=== PATIENT | female | born 1995 | race Caucasian/White ===

== ENCOUNTER 2016-07-12 15:10 | Emergency (ER) | payer OTHER ==
[~2016-07-12] VITALS: Ht 170.2 cm; Wt 104.3 kg
[~2016-07-12 15:10] MED LIST: PROAIR HFA0.09 MG/Ac INH; ROBITUSSIN W/CO10 ML PO; ZITHROMAX Z-PA250 M1 PO
[2016-07-12 16:35] VITALS: BP 114/67
[2016-07-12] MEDS ORDERED: AUGMENTIN600 MG/5 M PO (17:15)
--- NOTE | 2016-07-12 17:15 | ED INFLUENZA/URI COMPLAINT ---
History of Present Illness General Chief Complaint: General Adult Stated Complaint: COUGHING UP GREEN/BROWN PHLEGM, ?GUM INFECTION Source: patient Exam Limitations: no limitations Vital Signs & Intake/Output Vital Signs & Intake/Output Vital Signs Date Time Temp Pulse Resp B/P Pulse O2 O2 Flow FiO2 Ox Delivery Rate 07/12 1639 Room Air Room Air 07/12 1635 99.1 98 20 114/67 97 Room Air 07/12 1530 97.6 102 18 128/87 99 Room Air Allergies Coded Allergies: red dye (VOMITING 07/12/16) Reconcile Medications Amoxicillin/Potassium Clav (Augmentin Es-600 Suspension) 600 MG-42.9 MG/5 ML SUSP.RECON 7.5 ML PO BID SINUSITIS Triage Note: PT STATES THAT SHE HAS A GUM INFECTION FOR THE PAST 3-4 DAYS AND THAT SHE HAD A DENTIST APPOINTMENT THAT SHE MISSED TODAY DUE TO SHE CAME TO ER FOR HER COUGH THAT IS PRODUCTIVE OF BROWN SPUTUM SINCE THIS AM. AFEBRILE AT TRIAGE Triage Nurses Notes Reviewed? yes : No Patient currently breastfeeds: No HPI: 21-year-old obese female smoker presents with 2 days of cough congestion and green rhinorrhea, sinus pain and pressure, tactile fever, gum pain and swelling and mild bleeding with brushing her teeth. She is not wheezing or short of breath. She has no vomiting or abdominal pain. Symptoms are moderate. There is no treatment thus far no modifying factors Past History Travel History Traveled to [place] past 21 day No Medical History Any Pertinent Medical History? 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 No Review of Systems Review of Systems Constitutional: Reports: see HPI. EENTM: Reports: see HPI. Respiratory: Reports: no symptoms. Cardiovascular: Reports: no symptoms. GI: Reports: no symptoms. Genitourinary: Reports: no symptoms. Musculoskeletal: Reports: no symptoms. Skin: Reports: no symptoms. Neurological/Psychological: Reports: no symptoms. Hematologic/Endocrine: Reports: no symptoms. Immunologic/Allergic: Reports: no symptoms. All Other Systems: Reviewed and Negative Physical Exam Physical Exam Ears, Nose, Throat: moist mucous membrane, hearing grossly normal, Tympanic normal, pharynx normal, nasal congestion, nasal drainage, MINIMAL GUM ERYTHEMA WITHOUT ANY SIGNS OF SIGNIFICANT GINGIVAL HYPERTROPHY OR INFECTION. Comments: Well-developed well-nourished no apparent distress. HEENT: Atraumatic, extraocular motion intact Neck: Supple, no lymphadenopathy Back: Nontender Respiratory: No respiratory distress clear to auscultation bilateral. Heart: Regular rate and rhythm no murmur Extremities: No edema, full range of motion Neuro: Alert and oriented x3 Psych: Mood affect normal, normal memory normal judgment. Skin: Warm and dry, fine papular red rash to the face, nontender, not itchy. Core Measures Severe Sepsis Present: No Septic Shock Present: No Progress Differential Diagnosis: influenza, meningitis, neutropenia, otitis, pneumonia, pharyngitis, sinusitis Plan of Care: Treat with Augmentin for sinus infection. Smoking cessation counseling discussed. Initial ED EKG: none Departure Departure Disposition: HOME OR SELF CARE Condition: Stable Clinical Impression Primary Impression: Sinusitis Qualifiers: Sinusitis location: maxillary Chronicity: subacute Qualified Code: J01.00 - Acute maxillary sinusitis, unspecified Referrals: PATIENT HAS NO PRIMARY CARE DR (PCP/Family) Additional Instructions: Take antibiotics for your infection as directed. Use [id number] multisystem cold medication as needed. Motrin and Tylenol as needed for fever. Drink plenty of fluids. Return or follow-up with your doctor if not better in the next 3-5 days or if you're having continued worsening fevers, nausea, vomiting, shortness of breath, abdominal pain, difficulty swallowing or drinking or worsening flulike illness. Departure Forms: Customer Survey General Discharge Information Prescriptions: Current Visit Scripts Amoxicillin/Potassium Clav (Augmentin Es-600 Suspension) 7.5 ML PO BID #[id number] ML
== END 2016-07-12 17:30 ==
LOC: ERH 15:10
DX: J32.9 Chronic sinusitis, unspecified (principal); F17.210 Nicotine dependence, cigarettes, uncomplicated

== ENCOUNTER 2016-09-25 16:47 | Emergency (ER) | payer OTHER ==
[~2016-09-25] VITALS: Ht 170.2 cm; Wt 104.3 kg
[~2016-09-25 16:47] MED LIST changes: +AUGMENTIN600 MG/5 M PO
--- NOTE | 2016-09-25 19:02 | ED GI/GU/ABDOMINAL COMPLAINT ---
See Addendum History of Present Illness General Chief Complaint: Abdominal Pain/Flank Pain Stated Complaint: CONSTIPATED Source: patient Exam Limitations: no limitations Vital Signs & Intake/Output Vital Signs & Intake/Output Vital Signs Date Time Temp Pulse Resp B/P Pulse O2 O2 Flow FiO2 Ox Delivery Rate 09/25 1820 99 Room Air 09/25 1652 97.7 86 16 124/76 97 Room Air Allergies Coded Allergies: red dye (VOMITING 07/12/16) Reconcile Medications No Known Home Medications Triage Note: PT STATES SHE IS CONSTIPATED FOR A COUPLE OF DAYS. PT REPORTS THAT SHE TOOK A FLEET ENEMA ABOUT 1/2 HOUR AGO BUT STATES NOW SHE IS HAVING ABD PAIN AND FEELS LIKE THERE IS MORE IN THERE. Triage Nurses Notes Reviewed? yes ? N Is pt currently ? No HPI: This patient is a 21-year-old female who presented to the emergency department today for evaluation of constipation. The patient reported that sometimes she goes one week without having a bowel movement. She reported over the last 4 days she has felt constipated. She reported that she has had some mild lower abdominal cramping, but does not know if this is due to her menses which she is currently on board due to the constipation. She reported that she use a Fleet enema at home which caused her to have a, "mushy," bowel movement. This patient has never seen a director client. She denied any nausea or vomiting. She denied any fevers or chills. (PAZ MARKS PA-C) Past History Travel History Traveled to [place] past 21 day No Medical History Any Pertinent Medical History? 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 No (PAZ MARKS PA-C) Review of Systems Review of Systems Constitutional: Reports: no symptoms. EENTM: Reports: no symptoms. Respiratory: Reports: no symptoms. Cardiovascular: Reports: no symptoms. GI: Reports: see HPI. Genitourinary: Reports: no symptoms. Musculoskeletal: Reports: no symptoms, see HPI, back pain, gout, joint pain, joint swelling, muscle pain, muscle stiffness, neck pain. Skin: Reports: no symptoms. Neurological/Psychological: Reports: no symptoms. All Other Systems: Reviewed and Negative (PAZ MARKS PA-C) Physical Exam Physical Exam Gastrointestinal: normal bowel sounds, soft, non-tender, no organomegaly, MILD TENDERNESS TO PALPATION IN THE SUPRAPUBIC REGION. nO RIGHT LOWER QUADRANT TENDERNESS. nO REBOUND OR GUARDING. nO MASSES APPRECIATED. nO PERITONEAL SIGNS. Comments: Well-developed well-nourished person in no acute distress HEENT: Normal EENT exam, moist mucous membranes Pupils equally round and reactive to light. Neck: Supple, no lymphadenopathy Back: Normal gait. Normal inspection. No CVA tenderness. No midline tenderness Cardiovascular: Regular rate and rhythm with no murmurs Respiratory: No respiratory distress. Breath sounds clear to auscultation bilaterally Extremity: Normal and equal pulses Neuro: Alert oriented x3, cranial nerves II through XII grossly intact. Skin: No appreciable rash on exposed skin, skin is warm and dry. Psych: Mood and affect is normal Core Measures ACS in differential dx? No Severe Sepsis Present: No Septic Shock Present: No (PAZ MARKS PA-C) Progress Differential Diagnosis: appendicitis, biliary colic, bowel obstruction, colon cancer, cholecystitis, diverticulitis, ectopic , endometritis, gastritis, hepatitis, hernia, ischemic bowel, inflamm bowel dis, intrauterine , ovarian cyst, ovarian torsion, pancreatitis, PID/cervicitis, perforated viscous, SBO, threatened AB, UTI/pyelo, CONSTIPATION Plan of Care: Orders Procedure Date/time Status URINE 09/25 1852 Complete Laboratory Tests 09/25/161: Urine Test NEGATIVE 09/25/2016 7:56:55 PM: Signout received. Awaiting x-ray. 2024: Results of x-ray discussed with patient. Patient appears to be resting comfortably. Appears stable for discharge. Instructed to return if fevers, vomiting or worsening of symptoms. (HIREN HERRING) Initial ED EKG: none Hand-Off Endorsed To: HIREN HERRING Endorsed Time: 1939 Pending: Xray (PAZ MARKS PA-C) Departure Departure Disposition: HOME OR SELF CARE Condition: Stable Clinical Impression Primary Impression: Constipation Qualifiers: Constipation type: unspecified constipation type Qualified Code: K59.00 - Constipation, unspecified Referrals: [facility]ERS,ESTEFANIA Boss PATIENT HAS NO PRIMARY CARE DR (PCP/Family) Additional Instructions: Maintain a high-fiber diet. You may take [id number] MiraLAX. Please call to schedule a follow-up appointment with the director client whose information has been provided to this packet. Return for any worsening symptoms or concerns. Departure Forms: Customer Survey General Discharge Information Prescriptions: Current Visit Scripts No Known Home Medications (KENDRICK MUSE,PAZ)
--- NOTE | 2016-09-25 20:18 | RADIOLOGY REPORT ---
EXAMINATION: XR ABDOMEN MULTIPLE VIEWS CLINICAL INDICATION: Constipation. Rule out stool impaction. COMPARISON: None TECHNIQUE: 2 views, 4 images of the abdomen FINDINGS: There is a nonobstructive bowel gas pattern. No dilated loops of bowel. Gas and stool are seen throughout the colon. There is no gas seen in the rectum. No definite stool ball is seen. Moderate stool burden within the right hemicolon. No suspicious calcifications. No free air. No air-fluid levels. The lung bases are clear. No acute osseous abnormality. IMPRESSION: Moderate stool burden in the right hemicolon. There is no gas seen within the rectum. No definite stool seen in this location.
[2016-09-25 20:28] VITALS: BP 131/80
== END 2016-09-25 20:30 ==
LOC: ERH 16:47
DX: K59.00 Constipation, unspecified (principal)
CPT/HCPCS: 74020; 81025